=== PATIENT | female | born 1980 | race Caucasian/White ===

== ENCOUNTER 2017-05-09 10:11 | Outpatient (CLI) | payer OTHER ==
--- NOTE | 2017-05-10 13:13 | Vascular Lab Report ---
Left Lower Extremity Venous Duplex Study: Reason for Exam: Pain and swelling of the left lower extremity. Comments on the Right: A limited duplex study was done of the proximal veins of the right lower extremity. All veins visualized are freely compressible without evidence of internal echogenicity. Flow is spontaneous and phasic throughout. No evidence of acute or chronic thrombus is seen in any of the vessels visualized. Comments on the Left: Acute deep venous thrombosis is seen in the distal superficial femoral vein extending into the popliteal vein and involving the tibial veins and the gastrocnemius vein. The remaining veins visualized are freely compressible without evidence of internal echogenicity. Spontaneous and phasic flow is present proximally. Impression: Acute deep venous thrombosis of the distal left superficial femoral vein, popliteal vein, tibial veins, and the gastrocnemius vein.
== END 2017-05-09 10:12 | disposition home or self-care (01) ==
LOC: VAS 10:11
PROVIDERS: ATTEND Internal Medicine
DX: I82.412 Acute embolism and thrombosis of left femoral vein (principal); I82.432 Acute embolism and thrombosis of left popliteal vein; I82.442 Acute embolism and thrombosis of left tibial vein; I82.492 Acute embolism and thrombosis of other specified deep vein of left lower extremity

== ENCOUNTER 2017-05-09 11:13 | Emergency (ER) | payer OTHER ==
[2017-05-09 11:23] VITALS: BP 100/65
--- NOTE | 2017-05-09 13:31 | Emergency Department Report ---
Blank Doc - Documentation Documentation: Patient is a 37-year-old female who presented with left lower extremity pain for approximately one week patient had ultrasound done outpatient before her arrival and her doctor sent her in for evaluation. Patient is diagnosed with a acute DVT in the left lower extremity from the knee down please see H&P by MLP for further discharge planning
--- NOTE | 2017-05-09 14:04 | Emergency Department Report ---
ED Extremity Problem HPI - General Chief complaint: Extremity Injury, Lower Stated complaint: LEG PAIN Time Seen by Provider: 05/09/17 13:19 Source: patient Mode of arrival: Ambulatory Limitations: No Limitations - History of Present Illness Initial comments: 37-year-old [place] female comes in for complaint of left leg pain and swelling for 1 week. Patient reports that her primary care provider sent her over to have a ultrasound of her leg. Patient reports that it is painful to ambulate and not able to walk. Patient denies any chest pain no shortness of breathing no trauma to the leg. Patient has past medical history of back pain and she is on topirate 50mg 3 times a day. Patient has no known drug allergies. -: week(s) (1) Location: left History of Same: No -: No associated dyspnea, No associated chest pain Severity scale (0 -10): 10 Quality: burning, stabbing Consistency: constant Improves with: nothing Worsens with: weight bearing, walking - Related Data Previous Rx's Medication Instructions Recorded Last Taken Type Apixaban [Eliquis] 5 mg PO BID #80 tablet 05/09/17 Unknown Rx HYDROcodone/ACETAMINOPHEN [[place] 1 each PO Q4-6H PRN #12 tablet 05/09/17 Unknown Rx 5-325 Tablet] Allergies Allergy/AdvReac Type Severity Reaction Status Date / Time No Known Allergies Allergy Unverified 05/09/17 10:11 ED Review of Systems ROS: Stated complaint: LEG PAIN Other details as noted in HPI Constitutional: denies: chills, fever Eyes: denies: eye pain, eye discharge, vision change ENT: denies: ear pain, throat pain Respiratory: denies: cough, shortness of breath, wheezing Cardiovascular: denies: chest pain, palpitations Endocrine: no symptoms reported Gastrointestinal: denies: abdominal pain, nausea, diarrhea Genitourinary: denies: urgency, dysuria, discharge Musculoskeletal: myalgia, other (left lower leg swelling and painful). denies: back pain, joint swelling, arthralgia Skin: denies: rash, lesions Neurological: denies: headache, weakness, paresthesias Psychiatric: denies: anxiety, depression Hematological/Lymphatic: denies: easy bleeding, easy bruising ED Past Medical Hx - Past Medical History Additional medical history: back problem - Medications Home Medications: Home Medications Medication Instructions Recorded Confirmed Last Taken Type Apixaban [Eliquis] 5 mg PO BID #80 tablet 05/09/17 Unknown Rx HYDROcodone/ACETAMINOPHEN [[place] 1 each PO Q4-6H PRN #12 tablet 05/09/17 Unknown Rx 5-325 Tablet] ED Physical Exam - General Limitations: No Limitations General appearance: alert, in no apparent distress - Head Head exam: Present: atraumatic, normocephalic - Eye Eye exam: Present: normal appearance - ENT ENT exam: Present: mucous membranes moist - Neck Neck exam: Present: normal inspection - Respiratory Respiratory exam: Present: normal lung sounds bilaterally. Absent: respiratory distress - Cardiovascular Cardiovascular Exam: Present: regular rate, normal rhythm. Absent: systolic murmur, diastolic murmur, rubs, gallop - GI/Abdominal GI/Abdominal exam: Present: soft, normal bowel sounds - Expanded Lower Extremity Exam Left Upper Leg exam: Present: normal inspection Knee exam: Present: normal inspection Lower Leg exam: Present: tenderness, swelling, palpable cord. Absent: abrasion , ecchymosis, deformity Ankle exam: Present: tenderness, swelling. Absent: abrasion, laceration Foot/Toe exam: Present: swelling (mild) Neuro vascular tendon exam: Present: no vascular compromise Gait: Positive: observed and limited by pain - Neurological Exam Neurological exam: Present: alert, oriented X3 - Psychiatric Psychiatric exam: Present: normal affect, normal mood - Skin Skin exam: Present: warm, dry, intact, normal color. Absent: rash ED Course Vital Signs 05/09/17 11:17 Temperature 97.9 F Pulse Rate 89 Respiratory 16 Rate Blood Pressure 100/65 O2 Sat by Pulse 100 Oximetry ED Medical Decision Making - Medical Decision Making Patient and has been evaluated by this provider as well as Dr. Benavides in fast track. Patient had vascular studies which shows evidence of acute DVT in the left mid superficial vein extending all the way down to the left PTT including the left gastric anemic vein. Critical care attestation.: If time is entered above; I have spent that time in minutes in the direct care of this critically ill patient, excluding procedure time. ED Disposition Clinical Impression: DVT of axillary vein, acute left Disposition: DC-01 TO HOME OR SELFCARE Is pt being admited?: No Does the pt Need Aspirin: No Condition: Stable Instructions: Deep Venous Thrombosis (ED) Additional Instructions: Please take your medication as prescribed. Do not operate machinery or take alcohol while taking the [place]. It is very very important free to follow up with her primary care provider or vascular provider that I have listed below. Please return back to the emergency room with sudden chest pain shortness of breathing or worsening of this swelling of her leg. Prescriptions: Apixaban [Eliquis] 5 mg PO BID #80 tablet HYDROcodone/ACETAMINOPHEN [[place] 5-325 Tablet] 1 each PO Q4-6H PRN #12 tablet PRN Reason: Pain Referrals: PRIMARY CAREMD [Primary Care Provider] - 3-5 Days JAILENE MONTE MD [Staff Physician] - 3-5 Days CATERINA MCKINNON MD [Staff Physician] - 3-5 Days
[2017-05-09] MEDS ORDERED: NORCO 7.5/325 PO ONE (14:07)
== END 2017-05-09 14:27 | disposition home or self-care (01) ==
LOC: ED 11:13
DX: I82.492 Acute embolism and thrombosis of other specified deep vein of left lower extremity (principal)
CPT/HCPCS: 99282